=== PATIENT | female | born 1980 | race African-American/Black ===

== ENCOUNTER 2020-05-28 11:53 | Outpatient (CLI) | payer OTHER ==
[~2020-05-28 11:53] MED LIST: PHEN100C15 PO
== END 2020-05-28 20:08 | disposition home or self-care (01) ==
LOC: CT 11:53
DX: G40.409 Other generalized epilepsy and epileptic syndromes, not intractable, without status epilepticus (principal)

== ENCOUNTER 2020-10-21 13:25 | Outpatient (CLI) | payer OTHER | END 2020-10-21 20:24 | disposition home or self-care (01) | LOC: US 13:25 | PROVIDERS: ATTEND Nurse Practitioner Family | DX: R22.42 Localized swelling, mass and lump, left lower limb (principal) ==